=== PATIENT | female | born 1995 | race Caucasian/White ===

== ENCOUNTER 2016-12-11 16:36 | Observation (INO) | payer MEDICAID ==
[~2016-12-11] VITALS: Ht 157.5 cm; Wt 62.5 kg
[2016-12-11] MEDS ORDERED: FOLI-43 PO (17:30)
[2016-12-11] MEDS ORDERED: PREN-88 PO (17:30)
== END 2016-12-11 18:00 | disposition home or self-care (01) ==
LOC: L&D 16:36 → INTOOBSV 16:36
PROVIDERS: ADMIT Obstetrics & Gynecology; ATTEND Obstetrics & Gynecology
DX: O26.893 Other specified pregnancy related conditions, third trimester (principal); R10.9 Unspecified abdominal pain; O48.0 Post-term pregnancy; Z3A.40 40 weeks gestation of pregnancy
CPT/HCPCS: 99281; G0378